=== PATIENT | female | born 1990 | race Caucasian/White ===

== ENCOUNTER 2021-11-23 12:16 | Day surgery (SDC) | payer SELFPAY ==
[2021-11-22 14:13] VITALS: BMI 24.1
[2021-11-23] MEDS ORDERED: BACITRACIN 15 GM TUBE TOPICAL OINTMENT ONE (14:57)
[2021-11-23] MEDS ORDERED: EPINEPHrine/PF 1 MG/1 ML (1:1,000) AMPULE ONE (14:57)
[2021-11-23] MEDS ORDERED: LIDOCAINE HCL 1%, 10 MG/ML (20ML VIAL) ONE (14:57)
[2021-11-23] MEDS ORDERED: MIDAZOLAM HCL 2 MG/2 ML SINGLE DOSE VIAL ONE ×2 (15:15)
[2021-11-23] MEDS ORDERED: ROCURONIUM BROMIDE 50 MG/5 ML SYRINGE ONE (15:15)
[2021-11-23] MEDS ORDERED: PROPOFOL 20 ML ONE (15:15)
[2021-11-23] MEDS ORDERED: fentaNYL CITRATE 250 MCG/5 ML VIAL ONE (15:15)
[2021-11-23] MEDS ORDERED: HYDROmorphone HCL/PF 1 MG/ML VIAL ONE (16:02)
[2021-11-23] MEDS ORDERED: KETOROLAC TROMETHAMINE 30 MG/1 ML VIAL ONE (16:26)
[2021-11-23] MEDS ORDERED: ceFAZolin SODIUM 1 GM VIAL ONE (16:26)
[2021-11-23] MEDS ORDERED: DEXAMETHASONE SOD PHOSPHATE 4 MG/1 ML VIAL ONE (16:26)
[2021-11-23] MEDS ORDERED: VECURONIUM BROMIDE 10 MG/10 ML VIAL ONE (16:26)
[2021-11-23] MEDS ORDERED: ONDANSETRON 4 MG/2 ML VIAL ONE ×2 (16:26→19:00)
[2021-11-23] MEDS ORDERED: NEOSTIGMINE METHYLSULFATE 0.5 MG/1 ML - 10 ML MDV ONE (18:06)
[2021-11-23] MEDS ORDERED: ACETAMINOPHEN 1000 MG/100 ML BAG IVPB ONE (18:59)
[2021-11-23] MEDS ORDERED: PROMETHAZINE HCL 25 MG/1 ML VIAL IVPUSH PRN (18:59)
[2021-11-23] MEDS ORDERED: oxyCODONE HCL 5 MG TABLET PO PRN (18:59)
[2021-11-23] MEDS ORDERED: ONDANSETRON 4 MG/2 ML VIAL IVPUSH PRN (18:59)
[2021-11-23] MEDS ORDERED: ACETAMINOPHEN INJECTION 100 ML IVPB ONE (19:03)
[2021-11-23 19:37] VITALS: TEMP 97.9
[2021-11-23 20:08] VITALS: BP 115/80; PULSE 87
== END 2021-11-23 21:00 | disposition home or self-care (01) ==
LOC: FASU 12:16 → FM/S 21:55
PROVIDERS: ATTEND Surgery
CPT/HCPCS: 84703; 94760